=== PATIENT | male | born 1960 | race Caucasian/White ===

== ENCOUNTER 2018-08-21 18:40 | Emergency (ER) | payer SELFPAY ==
--- NOTE | 2018-08-21 19:23 | PDOC ---
Rapid Medical Evaluation Chief Complaint: Pain Time Seen by Provider: 08/21/18 19:20 Medical Evaluation: Allergies Allergy/AdvReac Type Severity Reaction Status Date / Time No Known Allergies Allergy Verified 03/31/14 11:24 08/21/18 19:21 pt c/o : rt flank, ruq pain x 2 days, worse after meals pt on brief exam: rt cva and ruq tenderness, tachy at 109, afebrile pt ordered for : ua, labs, iv pt to proceed to the ED Discharge Disposition - Diagnosis Abdominal pain - Referrals Referrals: Herb Walls MD [Primary Care Provider] - - Patient Instructions - Post Discharge Activity
[2018-08-21 19:24] VITALS: BMI 27.1
[2018-08-21 20:04] LABS: BASO % 0.8 % (0-2.0); EOS % 0.9 % (0-4.5); HEMATOCRIT 46.8 % (35.4-49); HEMOGLOBIN 16.3 GM/dL (11.7-16.9); LYMPH % 35.5 % (8-40); MCH 31.9 pg (25.7-33.7); MCHC 34.8 g/dl (32.0-35.9); MEAN CELL VOLUME 91.7 fl (80-96); MONO % 13.3 % (3.8-10.2); NEUT % 49.5 % (42.8-82.8); PLATELET COUNT 326 K/MM3 (134-434); RDW 15.2 % (11.9-15.9); WHITE BLOOD COUNT 6.3 K/mm3 (4.0-10.0)
[2018-08-21 20:41] LABS: URINE APPEARANCE CLEAR; URINE BILIRUBIN NEGATIVE (<2.0 mg/dL); URINE COLOR STRAW; URINE GLUCOSE (UA) NEGATIVE (NEGATIVE); URINE KETONE NEGATIVE (NEGATIVE); URINE LEUK ESTERASE NEGATIVE (NEGATIVE); URINE NITRITE NEGATIVE (NEGATIVE); URINE PROTEIN NEGATIVE (NEGATIVE); URINE UROBILINOGEN NEGATIVE mg/dL (0.2-1.0)
[2018-08-21 20:43] LABS: ALBUMIN 3.9 g/dl (3.4-5.0); ALK PHOS 65 U/L (45-117); ANION GAP 10 MMOL/L (8-16); BILIRUBIN,TOTAL 0.4 mg/dL (0.2-1); BLOOD UREA NITROGEN 18 mg/dL (7-18); CALCIUM 8.7 mg/dL (8.5-10.1); CHLORIDE 103 mmol/L (98-107); CO2 28 mmol/L (21-32); CREATININE 1.3 mg/dL (0.55-1.3); GLUCOSE,RANDOM 124 mg/dL (74-106); LIPASE 112 U/L (73-393); MAGNESIUM 2.3 mg/dL (1.8-2.4); POTASSIUM 4.3 mmol/L (3.5-5.1); SGOT/AST 31 U/L (15-37); SGPT/ALT 38 U/L (13-61); SODIUM 141 mmol/L (136-145); TOT PROT 7.7 g/dl (6.4-8.2)
--- NOTE | 2018-08-21 21:13 | PDOC ---
History of Present Illness - General Chief Complaint: Pain, Acute Stated Complaint: RIGHT SIDE PAIN Time Seen by Provider: 08/21/18 19:20 - History of Present Illness Initial Comments: 08/21/18 21:52 The patient is a 58 year old male with no significant PMH who presents for evaluation of RUQ abdominal pain. The patient reports a 2 day history of intermittent RUQ crampy abdominal pain that worsens after meals prompting his presentation to the ED for further evaluation. He denies similar symptoms in the past and otherwise denies fevers, chills, SOB, chest pain, nausea, vomiting , or changes with urination or bowel movements. Past History - Past Medical History Allergies/Adverse Reactions: Allergies Allergy/AdvReac Type Severity Reaction Status Date / Time No Known Allergies Allergy Verified 03/31/14 11:24 Home Medications: Ambulatory Orders No Home Medications 0 dose .ROUTE UTDICT 03/31/14 Anemia: No Asthma: No Cardiac Disorders: No COPD: No Diabetes: No HTN: No Hypercholesterolemia: No - Immunization History Immunization Up to Date: No - Suicide/Smoking/Psychosocial Hx Smoking Status: No Smoking History: Never smoked Have you smoked in the past 12 months: No Number of Cigarettes Smoked Daily: 0 Information on smoking cessation initiated: No Hx Alcohol Use: No Drug/Substance Use Hx: No Substance Use Type: Alcohol Review of Systems - Review of Systems Comments:: 08/21/18 21:57 Constitutional: No fevers, chills, fatigue, malaise HEENT: No Rhinorrhea, nasal congestion, visual changes Cardiovascular: No chest pain, syncope, palpitations, lightheadedness Respiratory: No Cough, SOB, Hemoptysis, Gastrointestinal: RUQ abdominal pain. No Nausea, Vomiting, Constipation, Diarrhea, Melena Genitourinary: No Dysuria, Frequency, Urgency, Hesitancy, Hematuria, Flank pain Musculoskeletal: No Myalgia, arthralgia Skin: No rashes, itching, bruising, pallor Neurologic: No Headache, Dizziness, Numbness, Weakness, or Tingling Psychiatric: No Hallucinations. No SI or HI *Physical Exam - Vital Signs Last Vital Signs Temp Pulse Resp BP Pulse Ox 97.8 F 110 H 16 158/94 100 08/21/18 19:22 08/21/18 19:22 08/21/18 19:22 08/21/18 19:22 08/21/18 19:22 - Physical Exam Comments: 08/21/18 21:57 General Appearance: Nourished. No Apparent Distress HEENT: No Pharyngeal Erythema, Tonsillar Exudate, Tonsillar Erythema Neck: No Cervical Lymphadenopathy Respiratory/Chest: Lungs Clear, Normal Breath Sounds. No Crackles, Rales, Rhonchi, Wheezing Cardiovascular: Regular Rhythm, Regular Rate. No Murmur, Gallops, Rubs Gastrointestinal/Abdominal: Normal Bowel Sounds, Soft. No Guarding, Rebound, Tenderness Musculoskeletal: No CVA Tenderness Extremity: Normal Capillary Refill Integumentary: Normal Color, Dry, Warm Neurologic: Fully Oriented, Alert, Normal Mood/Affect, Normal Response, Moderate Sedation - Procedure Monitoring Vital Signs: Procedure Monitoring Vital Signs Temperature 97.8 F 08/21/18 19:22 Pulse Rate 110 H 08/21/18 19:22 Respiratory Rate 16 08/21/18 19:22 Blood Pressure 158/94 08/21/18 19:22 O2 Sat by Pulse Oximetry (%) 100 08/21/18 19:22 ED Treatment Course - LABORATORY CBC & Chemistry Diagram: 08/21/18 19:51 08/21/18 19:51 - ADDITIONAL ORDERS Additional order review: Laboratory Results 08/21/18 08/21/18 20:26 19:51 Sodium 141 Potassium 4.3 Chloride 103 Carbon Dioxide 28 Anion Gap 10 BUN 18 Creatinine 1.3 Creat Clearance w eGFR 57.10 Random Glucose 124 H Calcium 8.7 Magnesium 2.3 Total Bilirubin 0.4 AST 31 ALT 38 Alkaline Phosphatase 65 Total Protein 7.7 Albumin 3.9 Lipase 112 Urine Color Straw Urine Appearance Clear Urine pH 7.[address] 1.013 Urine Protein Negative Urine Glucose (UA) Negative Urine Ketones Negative Urine Blood Negative Urine Nitrite Negative Urine Bilirubin Negative Urine Urobilinogen Negative Ur Leukocyte Esterase Negative 08/21/18 19:51 RBC 5.10 MCV 91.7 MCHC 34.8 RDW 15.2 MPV 8.0 Neutrophils % 49.5 Lymphocytes % 35.5 Monocytes % 13.3 H Eosinophils % 0.9 Basophils % 0.8 Medical Decision Making - Medical Decision Making 08/21/18 21:58 The patient is a 58 year old male with no significant PMH who presents for evaluation of RUQ abdominal pain. Differential includes but is not limited to: Gastroenteritis, Pancreatitis, Cholecysitis, Infectious, Metabolic Derangement. Labs including a cbc, cmp, lipase obtained in triage were unremarkable. Given the patient's history and physical exam, we will obtain a gallbladder US to evaluate further. We will continue to monitor and reassess while here in the ED.. 08/21/18 23:54 Gallbladder US is unremarkable as preliminarily read by our telecommunications support radiologist. CT abdomen/pelvis is unremarkable as preliminarily read by our telecommunications support radiologist. The patient reports improvement in his symptoms and is asymptomatic currently. We are comfortable discharging the patient home with GI and primary care provider follow up. We discussed the results, plan, and return precautions with the patient who voiced understanding and is agreeable with the plan. *DC/Admit/Observation/Transfer Diagnosis at time of Disposition: Abdominal pain Qualifiers: Abdominal location: unspecified location Qualified Code(s): R10.9 - Unspecified abdominal pain - Discharge Dispostion Disposition: HOME Condition at time of disposition: Stable Decision to Admit order: No - Referrals Referrals: Herb Walls MD [Primary Care Provider] - Adore Ackerman MD [Staff Physician] - - Patient Instructions Printed Discharge Instructions: DI for Abdominal Pain-Adult Additional Instructions: Please return to the ER if you experience concerning or worsening symptoms including worsening difficulty breathing, weakness, or chest pain. Your lab results were normal here in the ER. Your ultrasound and CT results were normal as well. Please call to schedule a follow up appointment with our GI specialist within 2-3 days to discuss your ER visit and further management of your symptoms. - Post Discharge Activity
--- NOTE | 2018-08-21 22:37 | PDOC ---
Attending Attestation - Resident Resident Name: Chidi Irwin - ED Attending Attestation I have performed the following: I have examined & evaluated the patient, The case was reviewed & discussed with the resident, I agree w/resident's findings & plan, Exceptions are as noted - Physicial Exam PE: 08/21/18 22:35 awake alert lungs clear bilaterally heart rr no mrg. abd soft mild righ mid quad mild ttp. neg tirado's, no cva tenderness. ext wwp no edema. pulses symmetric. nuero alert oriented x 3. gait normal. speech clear. - Medical Decision Making 08/21/18 22:36 58 yo M no pmhx here with c/o right sided mid abd pain. no radiation, seems worse with meals. started last pm. no n/v no change to stool no urinary complaints. no f/c on exam mild right mid quad ttp. differential biliary colic, renal colic, neil, appy, uti pyelo plans labs ua lipase ruq us. ruq normal. will ct a/p eval for other causes of pain. overall pt pain is improved. pain comes and goes urine negative. labs unremarkable. <Anna Wild - Last Filed: 08/21/18 22:35> - HPI HPI: 08/21/18 22:40 Patient is a 58 year old male with no significant past medical history presenting to the ER with abdominal pain since yesterday. Patient describes the abdominal pain as localized in the right upper quadrant, intermittent, sharp, and exacerbated after food intake. Patient denies having similar abdominal pain in the past. Patient denies fevers, chills, nausea, vomiting, chest pain, shortness of breath , urinary symptoms, or changes in bowel movements. Allergies: NKDA Past surgical history: None reported. Social history: No reported alcohol, drug or cigarette use. PCP: Dr. Herb Walls <Ameena Curtis - Last Filed: 08/21/18 22:43>
[2018-08-22 01:43] VITALS: BP 130/93; PULSE 75; TEMP 98.3
== END 2018-08-22 01:36 | disposition home or self-care (01) ==
LOC: JER 18:40
DX: R10.9 Unspecified abdominal pain (principal)
CPT/HCPCS: 36415; 74176-TC; 76705-TC; 80053; 81003; 83690; 83735; 85025; 87086; 99284-25